=== PATIENT | female | born 1955 | race Caucasian/White ===

== ENCOUNTER → 2017-08-08 | Outpatient (CLI) | payer OTHER ==
[~2017-08-08] MED LIST: ACET-1175 PO; CZR25 PO; MULTTAB58 PO
[2017-08-08 18:06] LABS: BLOOD UREA NITROGEN 14 mg/dl (7-18); CREATININE 0.76 mg/dl (0.60-1.20)
== END | disposition home or self-care (01) ==
LOC: C.LABMFLN 13:47
PROVIDERS: ATTEND Family Medicine
DX: K76.9 Liver disease, unspecified (principal)

== ENCOUNTER → 2017-08-11 | Outpatient (CLI) | payer OTHER ==
[~2017-08-11] MED LIST changes: +GADOXETATE DISODIUM (NON-WT BASED PROCEDURE) IV PRN
--- NOTE | 2017-08-11 18:47 | DIAGNOSTIC IMAGING REPORT ---
MRI LIVER COMBO CLINICAL HISTORY: Colon carcinoma. History of partial colectomy. Abdominal pain. Reported hepatic mass. TECHNIQUE: Imaging was performed prior to and following IV contrast injection. The patient was administered 10 cc of intravenous Eovist. COMPARISON STUDY: No previous studies for comparison. FINDINGS: Imaging was performed in the axial and coronal planes, before and after the administration of contrast. The spleen measures 9.5 cm in length. No splenic masses are visualized. There is a 19 mm right renal cyst. There are subcentimeter left renal cyst. No pancreatic masses are visualized. No adrenal masses are visualized. There is no evidence of abdominal aortic aneurysm. There are no suspicious areas of marrow replacement. There is no evidence of ductal dilatation. No gallbladder abnormalities are visualized. Within the posterior aspect of the right lobe of the liver, immediately beneath the right hemidiaphragm, there is a 39 mm slightly T2 bright hepatic lesion. This lesion is markedly hyper vascular on dynamic imaging on 20 minute delayed imaging, the lesion is slightly hypointense to liver parenchyma. The lesion contains no central scar. The lesion contains no significant fat as demonstrated on in and out of phase imaging. The lesion does not have the typical imaging characteristics of focal nodular hyperplasia, or a hemangioma. Likely diagnostic considerations therefore include, hepatic adenoma, metastasis, or less likely hepatocellular carcinoma. IMPRESSION: 1. Indeterminate 39 mm hepatic mass within segment 7. Likely diagnostic considerations include hepatic adenoma, hypervascular metastasis, or less likely hepatocellular carcinoma. Electronically signed by: Fadi Andres M.D. 08/11/2017 6:46 PM Dictated Date/Time: 08/11/2017 6:33 PM
== END | disposition home or self-care (01) ==
LOC: C.MRI 16:44
PROVIDERS: ATTEND Family Medicine
DX: N28.1 Cyst of kidney, acquired (principal); Z85.038 Personal history of other malignant neoplasm of large intestine; R16.0 Hepatomegaly, not elsewhere classified; K76.89 Other specified diseases of liver